=== PATIENT | male | born 1955 ===

== ENCOUNTER → 2019-12-18 14:54 | Outpatient (CLI) | payer MEDICARE ==
[2019-12-18 15:41] LABS: BILIRUBIN NEGATIVE (NEGATIVE); GLUCOSE NEGATIVE (NEGATIVE); KETONE NEGATIVE (NEGATIVE); NITRITE NEGATIVE (NEGATIVE); UROBILINOGEN NORMAL (NORMAL)
[2019-12-18 15:47] LABS: AMORPHOUS SEDIMENT >1+ /lpf (NONE SEEN); BACTERIA MODERATE /hpf (NEGATIVE); EPITHELIAL CELLS 0-5 /hpf (0-5); RED CELLS - URINE NONE SEEN /hpf (0-5); WHITE CELLS - URINE NSEEN /hpf (NEGATIVE)
== END | disposition home or self-care (01) ==
LOC: D.LABREF 14:54
PROVIDERS: ATTEND Family Medicine
DX: N39.0 Urinary tract infection, site not specified (principal)